=== PATIENT | male | born 1995 | race Caucasian/White ===

== ENCOUNTER 2019-12-19 07:55 | Emergency (ER) | payer OTHER ==
[~2019-12-19] VITALS: Ht 182.9 cm; Wt 81.6 kg
[2019-12-19 08:00] VITALS: BP_SYST 138
--- NOTE | 2019-12-19 08:00 | NUR ---
BROUGHT IN BY [facility], PT STATES HE IS WEAK, TRIAGED AND PT TO WAITING ROOM. VSS
--- NOTE | 2019-12-19 08:07 | NUR ---
DR AVILES AT BEDSIDE FOR EVALUATION
--- NOTE | 2019-12-19 08:15 | NUR ---
PT IS YELLING AND CURSING AT STAFF, STATING HE NEED A BED TO SLEEP IN FOR 3 HOURS AND FOOD. FOOD GIVEN TO PT AND EXPLAINED TO PT THAT WE CAN NOT JUST HAVE HIM SLEEP IN A HOSPITAL BED. MORE FOOD GIVEN TO PT.
--- NOTE | 2019-12-19 08:22 | NUR ---
Patient given written and verbal discharge instructions and verbalizes understanding. ER MD discussed with patient the results and treatment provided. Patient in stable condition. ID arm band removed. Rx of NONE given. Patient educated on pain management and to follow up with PMD. Pain Scale 0/10. Opportunity for questions provided and answered. Medication side effect fact sheet provided.
== END 2019-12-19 08:22 | disposition home or self-care (01) ==
LOC: SED 07:55
DX: Z02.89 Encounter for other administrative examinations (principal)
CPT/HCPCS: 99283